=== PATIENT | male | born 1930 | race Caucasian/White ===

== ENCOUNTER 2018-12-26 12:42 | Outpatient (CLI) | payer MEDICARE ==
--- NOTE | 2018-12-26 15:56 | HP ---
HISTORY OF PRESENT ILLNESS: Mr. Skip Herman is a very pleasant 88-year-old gentleman, accompanied by his spouse, who [facility] for evaluation of bilateral lower extremity edema associated with weeping of the skin of the right and left lower legs. The patient states that he has been admitted to the hospital on five separate occasions for cellulitis. He states that the cellulitis then progresses to severe stasis dermatitis. The patient states that the appearance of his right and left lower legs is worse than all previous bouts. The patient states that he has been receiving treatment for the edema and stasis dermatitis of his right and left lower legs for the past three and a half months. The patient's states that Mr. Herman has been receiving dressing changes 2 times per week with the assistance of Home Health. She states that at first a cream is applied to the skin of the right and left lower legs, followed by compression wraps. The patient and his state that Unna boots were initially applied to the right and left feet and lower legs. PAST MEDICAL HISTORY: 1. Chronic atrial fibrillation. 2. Arthritis. 3. Hypothyroidism. 4. Hypertension. PAST SURGICAL HISTORY: 1. Bilateral herniorrhaphies with Marlex mesh. 2. Right total hip arthroplasty. 3. Irrigation and debridement of postoperative right hip hematoma with primary closure over a drain. 4. Back surgery. MEDICATIONS: 1. Coumadin. 2. Lipitor. 3. Diltiazem. 4. Lasix. 5. Multivitamin. 6. Alphagan eyedrops. 7. Xalatan eyedrops. 8. Benadryl. 9. Levothyroxine. ALLERGIES: NO KNOWN DIAGNOSED ALLERGIES. SOCIAL HISTORY: Significant for tobacco use of three packs of cigarettes per day for 65 years. The patient states that he stopped smoking in 1974. Social history is negative for EtOH use. FAMILY HISTORY: Significant for coronary artery disease. The patient's mother and father were both diagnosed with coronary artery disease. Family history is negative for diabetes mellitus. PHYSICAL EXAMINATION: VITAL SIGNS: Temperature 98.0, pulse 104, respirations are 21, and blood pressure 140/78. GENERAL: An 88-year-old gentleman, sitting on stretcher in examination room, and in no acute distress. HEENT: Normocephalic and atraumatic. NECK: No nuchal rigidity. CHEST: Clear to auscultation. CV: Regular. ABDOMEN: Soft. EXTREMITIES: Erythema and weeping of the skin of the right and left lower legs is present on exam today. No open wounds are noted on today's exam. No cellulitis of the right or left lower extremity is appreciated. A dorsalis pedis pulse is easily palpable on the right and on the left. NEUROLOGIC: Grossly nonfocal. ASSESSMENT AND PLAN: 1. 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 These dressing changes are to be performed 2 times per week after cleansing and irrigation with the assistance of Home Health. No antibiotics will be prescribed today based upon the appearance of the lower extremities, I will see Mr. Herman again in 2 weeks. The patient and his understand and are in agreement with the preceding treatment plan. 2. Chronic atrial fibrillation. 3. Hypothyroidism. 4. Hypertension. 5. Arthritis. Job ID: [id number]
== END 2018-12-26 12:43 | disposition home or self-care (01) ==
LOC: WCC 12:42
PROVIDERS: ATTEND Family Medicine
DX: I87.333 Chronic venous hypertension (idiopathic) with ulcer and inflammation of bilateral lower extremity (principal); L97.929 Non-pressure chronic ulcer of unspecified part of left lower leg with unspecified severity; L97.919 Non-pressure chronic ulcer of unspecified part of right lower leg with unspecified severity; I48.2 Chronic atrial fibrillation; E03.9 Hypothyroidism, unspecified; I10 Essential (primary) hypertension; M19.90 Unspecified osteoarthritis, unspecified site
CPT/HCPCS: 29581; 99203; G0463

== ENCOUNTER 2019-01-09 13:56 | Outpatient (CLI) | payer MEDICARE ==
--- NOTE | 2019-01-09 15:49 | PRG ---
DATE OF SERVICE: 01/09/2019 HISTORY: Mr. Skip Herman is a very pleasant 88-year-old gentleman, accompanied by his spouse, who presents to the [facility] for evaluation of bilateral lower extremity edema associated with weeping of the skin of the right and left lower legs. The patient previously stated that he had been admitted to the hospital on 5 separate occasions for cellulitis. He stated that the cellulitis then progressed to severe stasis dermatitis. The patient stated that the appearance of his right and left lower legs at the time of his initial presentation to the [facility] was worse than at the time of all previous bouts. The patient stated that he had been receiving treatment for edema and stasis dermatitis of his right and left lower legs for 3-1/2 months prior to being seen in the [facility]. The patient's stated that Mr. Herman had been receiving dressing changes 2 times per week with the assistance of Home Health prior to being seen in the [facility]. She stated that at first, a cream was applied to the skin of the right and left lower legs, followed by compression wraps. The patient's and the patient stated that the Unna boots were initially applied to the right and left feet and lower legs. PHYSICAL EXAMINATION: VITAL SIGNS: Temperature 98.3, pulse 130, respirations 20, and blood pressure 137/71. EXTREMITIES: Erythema and weeping of the skin of the right and left lower legs is present on exam today. No open wounds are noted on today's exam. No cellulitis of the right or left lower extremities appreciated. A dorsalis pedis pulse is palpable on the right and on the left. The appearance of skin of the right and left lower legs has improved since the patient's last visit to the [facility]. ASSESSMENT AND PLAN: 1. Chronic venous hypertension with inflammation. Dressing changes of Xeroform gauze, ABDs, Webril, and the 3M Coban 2 Layer Compression System are to be performed 2 to 3 times per week after cleansing and irrigation with the assistance of Home Health. I will see Mr. Herman again in 2 weeks. 2. Chronic atrial fibrillation. 3. Hypothyroidism. 4. Hypertension. 5. Arthritis. Job ID: [id number]
== END 2019-01-09 13:57 | disposition home or self-care (01) ==
LOC: WCC 13:56
PROVIDERS: ATTEND Family Medicine
DX: I87.323 Chronic venous hypertension (idiopathic) with inflammation of bilateral lower extremity (principal); I48.2 Chronic atrial fibrillation; E03.9 Hypothyroidism, unspecified; I10 Essential (primary) hypertension; M19.90 Unspecified osteoarthritis, unspecified site
CPT/HCPCS: 29581

== ENCOUNTER 2019-01-23 13:09 | Outpatient (CLI) | payer MEDICARE ==
--- NOTE | 2019-01-23 14:44 | PRG ---
DATE OF SERVICE: 01/23/2019 HISTORY: Mr. Skip Herman is a very pleasant 88-year-old gentleman, accompanied by his spouse, who presents to the [facility] for evaluation of bilateral lower extremity edema associated with weeping of the skin of the right and left lower legs. The patient previously stated that he had been admitted to the hospital on 5 separate occasions for cellulitis. He stated that the cellulitis then progressed to severe stasis dermatitis. The patient stated that the appearance of his right and left lower legs at the time of his initial presentation to the [facility] was worse than at the time of all previous bouts. The patient stated that he had been receiving treatment for edema and stasis dermatitis of his right and left lower legs for 3-1/2 months prior to being seen in the [facility]. The patient's stated that Mr. Herman had been receiving dressing changes 2 times per week with the assistance of Home Health prior to being seen in the [facility]. She stated that at first, a cream was applied to the skin of the right and left lower legs, followed by compression wraps. The patient's and the patient stated that the Unna boots were initially applied to the right and left feet and lower legs. PHYSICAL EXAMINATION: VITAL SIGNS: Temperature 98.4, pulse 145, respirations 20, and blood pressure 138/79. EXTREMITIES: Erythema and weeping of the skin of the right and left lower legs are present on exam today. No open wounds are noted on today's exam. No cellulitis of the right or left lower extremity is appreciated. Again, the appearance of the skin of the right and left lower legs has improved since the patient's last visit to the [facility]. ASSESSMENT AND PLAN: 1. Chronic venous hypertension with inflammation. Dressing changes of Xeroform gauze, ABDs, Webril, and the 3M Coban 2 Layer Compression System are to be performed 3 times per week after cleansing and irrigation with the assistance of Home Health. As per the patient's request, I will see Mr. Herman again in 4 weeks. 2. Chronic atrial fibrillation. 3. Hypothyroidism. 4. Hypertension. 5. Arthritis. Job ID: [id number]
== END 2019-01-23 13:10 | disposition home or self-care (01) ==
LOC: WCC 13:09
PROVIDERS: ATTEND Family Medicine
DX: I87.323 Chronic venous hypertension (idiopathic) with inflammation of bilateral lower extremity (principal); E03.9 Hypothyroidism, unspecified; I10 Essential (primary) hypertension; M19.90 Unspecified osteoarthritis, unspecified site; I48.2 Chronic atrial fibrillation